=== PATIENT | male | born 1945 | race Caucasian/White ===

== ENCOUNTER → 2018-03-16 | Outpatient (CLI) | payer BC, MEDICARE ==
[2017-09-05 15:10] VITALS: BP 174/85
[~2018-03-16] MED LIST: AMLO10TA6 PO; BENA40TA3 PO; CALC1CAP7 PO; CRESTOR5 MG PO; FURO-69 PO; GLIM4TAB2 PO; HYDR-2868 PO; LABE200T4 PO; LATA2.5D3 EACHEYE; PIOG15TA42 PO; TERA2CAP3 PO
--- NOTE | 2018-03-16 15:45 | CARD ---
MR#: [id number] Date of Study: 03/16/2018 Ordering Physician: KAREEM QIU, Referring Physician: KAREEM QIU, Tech: Kasey Lucero [facility] APPROVED REPORT EXAM: Two-dimensional and M-mode echocardiogram with Doppler and color Doppler. Other Information Quality : AverageHR: 64bpm Rhythm : NSR INDICATION Congestive Heart Failure 2D DIMENSIONS RVDd3.4 (2.9-3.5cm)Left Atrium(2D)4.7 (1.6-4.0cm) IVSd1.5 (0.7-1.1cm)Aortic Root(2D)3.2 (2.0-3.7cm) LVDd5.6 (3.9-5.9cm)LVOT Diameter2.2 (1.8-2.4cm) PWd1.0 (0.7-1.1cm)LVDs4.4 (2.5-4.0cm) FS (%) 21.3 %SV66.0 ml Aortic Valve AoV Peak Vasile.152.2cm/sAoV VTI33.7cm AO Peak GR.9.3mmHgLVOT Peak Vasile.141.5cm/s AO Mean GR.5mmHgAVA (VMAX)3.38cm2 SITA (VTI)3.30cm2 Mitral Valve MV E Kvusmwph585.6cm/sMV E Peak Gr.11mmHg MV DECEL [id number] A Xrsnuhxw94.7cm/s MV E Mean Gr.4mmHgE/A Ratio2.2 MV A Eavwmlzz059da Pulmonary Valve PV Peak Eoyksdet473.8cm/s Tricuspid Valve TR P. Vhvdwfhe953ju/sRAP XMZTLIAM2wwGr TR Peak Gr.52fiMpZXRR87vnQj LEFT VENTRICLE The left ventricle is normal size. Proximal septal thickening is noted. The left ventricular systolic function is normal. The ejection fraction is estimated at 55-60%. There is normal LV segmental wall motion. Transmitral Doppler flow pattern is Grade III-reversible restrictive diastolic dysfunction. RIGHT VENTRICLE The right ventricle is normal size. There is normal right ventricular wall thickness. The right ventr icular systolic function is normal. ATRIA The left atrium is mildly dilated. The right atrium is mildly dilated. The interatrial septum is inta ct with no evidence for an atrial septal defect or patent foramen ovale as noted on 2-D or Doppler im aging. AORTIC VALVE The aortic valve is normal in structure and function. The aortic valve is trileaflet. Doppler and Col or Flow revealed trace aortic regurgitation. There is no significant aortic valvular stenosis. MITRAL VALVE Mitral annular calcification is mild. There is no evidence of mitral valve prolapse. There is mild mi tral valve stenosis. Calculated mitral valve area is 2.5 cm2 with maximum pressure gradient of 11 mmH g and mean pressure gradient of 4 mmHg. TRICUSPID VALVE The tricuspid valve is normal in structure and function. Doppler and Color Flow revealed mild tricusp id regurgitation. There is moderate pulmonary hypertension. The PA pressure was estimated at 57 mmHg. There is no tricuspid valve prolapse or vegetation. There is no tricuspid valve stenosis. PULMONIC VALVE The pulmonary valve is normal in structure and function. Doppler and Color Flow revealed no pulmonic valvular regurgitation. There is no pulmonic valvular stenosis. GREAT VESSELS The aortic root is normal in size. The ascending aorta is normal in size. PERICARDIAL EFFUSION There is no evidence of significant pericardial effusion. Critical Notification Critical Value: No <Conclusion> The left ventricular systolic function is normal. The ejection fraction is estimated at 55-60%. There is normal LV segmental wall motion. There is mild mitral valve stenosis. Mild tricuspid regurgitation. There is moderate pulmonary hypertension. The PA pressure was estimated at 57 mmHg. There is no evidence of significant pericardial effusion. Signed by : Jose Garibay, Electronically Approved : 03/16/2018 15:43:21
== END | disposition home or self-care (01) ==
LOC: ECHO 13:53
PROVIDERS: ATTEND Internal Medicine Cardiovascular Disease
DX: I08.1 Rheumatic disorders of both mitral and tricuspid valves (principal); I11.0 Hypertensive heart disease with heart failure; I50.9 Heart failure, unspecified; Z87.891 Personal history of nicotine dependence
CPT/HCPCS: 93306

== ENCOUNTER → 2018-05-02 | Outpatient (CLI) | payer MEDICARE ==
[2017-09-05 15:10] VITALS: BP 174/85
[~2018-05-02] MED LIST changes: -AMLO10TA6 PO; +AMLO10TA8 PO
--- NOTE | 2018-05-02 15:35 | KCIC ---
Indication: Claudication in the right lower extremity. TECHNIQUE: Grayscale, color Doppler and spectral waveform images of the right lower extremity arteries COMPARISON: None FINDINGS: Biphasic waveforms in the REEL CART OPERATOR with velocity of 179 cm/s. Biphasic waveform in the profunda femoris artery with velocity of 123 cm/s. Biphasic waveform in the proximal SFA with velocity of 150 cm/s. Biphasic waveform in the mid SFA with velocity 153 cm/s. Biphasic waveform in the distal SFA with velocity of 163 cm/s. Biphasic waveform in the popliteal artery with velocity of 120 cm/s. Biphasic waveforms in the proximal and distal CARDER BLANKETS with highest velocity of 113 cm/s. No flow is seen in the peroneal artery. Biphasic waveforms are seen in the dorsalis pedis artery with velocity of 111 cm/s. Biphasic waveforms are seen in the anterior tibial artery with velocity of 78 cm/s. IMPRESSION: 1. No flow in the peroneal artery likely occluded. 2. Moderate diffuse atherosclerotic disease in the right lower extremity without focal increased velocities suggest focal stenosis. Electronically signed by: Kamlesh Barrera DO (05/02/2018 3:33 PM) [facility]
== END | disposition home or self-care (01) ==
LOC: KCIC US 11:59
PROVIDERS: ATTEND Family Medicine
DX: I70.291 Other atherosclerosis of native arteries of extremities, right leg (principal)
CPT/HCPCS: 93926

== ENCOUNTER → 2018-08-13 | Outpatient (CLI) | payer MEDICARE ==
[2017-09-05 15:10] VITALS: BP 174/85
--- NOTE | 2018-08-13 17:13 | KCIC ---
Chest radiograph 08/13/2018 12:00 AM INDICATION: Pulmonary hypertension, past smoker COMPARISON: September 02, 2017 TECHNIQUE: Frontal and lateral views of the chest are provided. FINDINGS: The cardiomediastinal silhouette is within normal limits. There are no pleural effusions. There is no pulmonary vascular congestion. There is no pneumothorax. Improved aeration of the left lung base with persistent patchy interstitial changes which may represent subsegmental atelectasis versus scarring. No significant osseous abnormality is identified. Surgical clips are identified in the right axilla and the the neck base. IMPRESSION: Persistent patchy interstitial changes of the left lung base which may represent subsegmental atelectasis versus scarring. No new airspace consolidation. Electronically signed by: Elizabeth Moseley MD (08/13/2018 5:11 PM) [facility]
== END | disposition home or self-care (01) ==
LOC: KCIC CT 14:50
PROVIDERS: ATTEND Family Medicine
DX: J84.89 Other specified interstitial pulmonary diseases (principal); I27.0 Primary pulmonary hypertension; Z87.891 Personal history of nicotine dependence
CPT/HCPCS: 71046

== ENCOUNTER → 2018-11-20 | Outpatient (CLI) | payer MEDICARE ==
[2017-09-05 15:10] VITALS: BP 174/85
[~2018-11-20] MED LIST changes: -GLIM4TAB2 PO; +GLIM4TAB4 PO; +ZOLPIDEM 5 MG TABLET. PO ONE
--- NOTE | 2018-11-28 10:00 | SLEEP ---
DATE OF STUDY: SLEEP STUDY ATTENDING PHYSICIAN: Antelmo Linda MD REFERRING PHYSICIAN: Cristal Birch MD The patient is a 73-year-old who weighs 270 pounds with a BMI of 33. The patient's Meridian score was 10. The patient underwent split night study performed at [facility]. During the night study, the patient spent 391 minutes in bed and slept for 300 minutes with a sleep efficiency of 77%. Sleep latency was 68 minutes with a REM latency of 212 minutes. Sleep architecture showed normal stage 1 sleep, increased stage 2 sleep, absent slow wave and reduced REM sleep. During the initial diagnostic portion of the study, the patient slept for 81 minutes. During that time, there was 1 obstructive apnea, 2 mixed apneas, no central apneas and 63 hypopneas. The patient's apnea hypopnea index was 49 per hour with a supine index of 58 per hour. REM sleep was not seen during the diagnostic portion. EKG monitoring revealed an average heart rate of 63 beats per minute, no sustained arrhythmias observed. Nocturnal oximetry study revealed a mean oxygen saturation of 94% with the lowest of 83%. 19% of time oxygen saturation remained less than 90%. PLMS were seen at index of 15 per hour and 1 per hour caused EEG arousals. The patient met the criteria for CPAP initiation. It was started at 5 cm water and titrated up to 14 cm water. At the final pressure, the patient slept for 101 minutes. The patient had lateral REM sleep. The patient's AHI was reduced to 1 per hour and oxygen saturation remained above 88%. The patient used a large size full face mask. IMPRESSION: 1. Severe sleep apnea-hypopnea syndrome at an AHI of 49 per hour. 2. Nocturnal hypoxia secondary to LASHON, but resolved with CPAP. 3. Mild PLMS without any significant EEG arousals. This does not need to be treated. RECOMMENDATIONS: 1. CPAP at 14 cm water completely eliminated the patient's sleep apnea and should be used on a nightly basis. 2. Follow up in 4-6 weeks to assess compliance with CPAP and to document clinical improvement. 3. Weight loss is strongly advised. 4. 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 5. Cautioned regarding driving until symptoms of sleep apnea resolve with the use of CPAP. CONCHITA U. GUERRERO, MD DR: SAMARA/sekou JOB#: [id number] / [id number] CRISTAL Singer MD, TERRY MD
== END | disposition home or self-care (01) ==
LOC: SLPLAB 19:02
PROVIDERS: ATTEND Internal Medicine Pulmonary Disease
DX: G47.33 Obstructive sleep apnea (adult) (pediatric) (principal); G47.34 Idiopathic sleep related nonobstructive alveolar hypoventilation; G47.61 Periodic limb movement disorder
CPT/HCPCS: 95810

== ENCOUNTER → 2019-04-01 | Outpatient (CLI) | payer MEDICARE ==
[2017-09-05 15:10] VITALS: BP 174/85
[~2019-04-01] MED LIST changes: -GLIM4TAB4 PO; +GLIM4TAB8 PO; -ZOLPIDEM 5 MG TABLET. PO ONE
--- NOTE | 2019-04-01 13:28 | KCIC ---
TOES LEFT, FOOT LEFT 3V History: Left foot pain after fall last week. Pain at the distal metatarsals.. 3 view left toes: Fractures of the distal second, third and fourth metatarsals, mildly comminuted. Lateral angulation of the metatarsal heads, greatest at the fourth metatarsal head. No evidence of dislocation. 3 view left foot: Fractures of the distal second, third and fourth metatarsals are again seen. No other fractures are identified. No evidence of dislocation. Tarsometatarsal alignment is intact. Note is made of some focal punctate density within the distal tibia, probably a small enchondroma. IMPRESSION: 1. Distal second, third and fourth metatarsal fractures. 2. Small calcified cluster at the distal tibia, most likely a small benign enchondroma. Electronically signed by: Sanjeev Sifuentes MD (04/01/2019 1:25 PM) [facility]
== END | disposition home or self-care (01) ==
LOC: KCIC 12:48
PROVIDERS: ATTEND Family Medicine
DX: S92.322A Displaced fracture of second metatarsal bone, left foot, initial encounter for closed fracture (principal); S92.332A Displaced fracture of third metatarsal bone, left foot, initial encounter for closed fracture; S92.342A Displaced fracture of fourth metatarsal bone, left foot, initial encounter for closed fracture; W19.XXXA Unspecified fall, initial encounter; Y93.89 Activity, other specified; Y92.89 Other specified places as the place of occurrence of the external cause; Y99.8 Other external cause status
CPT/HCPCS: 73630; 73660

== ENCOUNTER → 2019-11-26 | Outpatient (CLI) | payer MEDICARE ==
[2017-09-05 15:10] VITALS: BP 174/85
[~2019-11-26] MED LIST changes: +AMLO-187 PO; -AMLO10TA8 PO
--- NOTE | 2019-11-26 11:01 | KCIC ---
Study: 1. CR L-SPINE 6V AP/LAT/OBL/FLEX/EXT 2. CR PELVIS Indication: Chronic low back pain with weakness and to the right hip/leg. No known injury. Comparison: None available. Findings: Lumbar spine: Degenerative dextroscoliosis with the apex at L3. Correspondingly there is severe disc space narrowing lateralized to the left at L3-L4 and degenerative rightward translation of L3 on L4. Advanced discogenic arthrosis also present at L4-L5 and L5-S1 particularly lateralized to the right at these levels. Mild retrolisthesis of L3 on L4. Straightening of lumbar lordosis. Development of mild grade 1 anterolisthesis of L2 on L3 with flexion. Neutral alignment across this disc space with the patient neutral and extending. No motion seen elsewhere. Advanced multilevel facet degeneration becoming most pronounced at the lower lumbar spine. No pars defect is identified on the oblique views. Osteopenia. Numerous surgical clips centered at the right lower quadrant. Vascular calcifications. Pelvis: Minimal arthrosis of both hips with maintained joint space height. Unremarkable pubic symphysis. No ankylosis with periarticular sclerosis at the SI joints. No acute fracture. Osteopenia. Surgical material projecting over the pubic bodies. Impression: Lumbar spine: 1. Advanced discogenic arthrosis from L3-L4 through L5-S1 as well as advanced multilevel facet degeneration progressing in severity towards the lower lumbar spine. Degenerative dextroscoliosis apex L3 with degenerative rightward translation of L3 on L4. 2. Development of mild grade 1 anterolisthesis of L2 on L3 only with flexion. Mild retrolisthesis of L3 on L4 but without motion on dynamic imaging. 3. Additional chronic observations as above. Pelvis: 1. No acute fracture. Minimal arthrosis at the hips. Electronically signed by: MIGUEL REYEZ MD (11/26/2019 10:58 AM) [id number]
== END ==
LOC: KCIC 09:27
PROVIDERS: ATTEND Family Medicine
DX: M47.817 Spondylosis without myelopathy or radiculopathy, lumbosacral region (principal); M43.16 Spondylolisthesis, lumbar region; M40.46 Postural lordosis, lumbar region; M85.88 Other specified disorders of bone density and structure, other site; M16.0 Bilateral primary osteoarthritis of hip; G89.29 Other chronic pain
CPT/HCPCS: 72114; 72170

== ENCOUNTER → 2020-05-20 | Outpatient (CLI) | payer MEDICARE ==
[2017-09-05 15:10] VITALS: BP 174/85
--- NOTE | 2020-05-21 09:33 | KCIC ---
MR LUMBAR SPINE [id number] Date: 05/20/2020 12:51 PM Indication: RIGHT LEG WEAKNESS. LBP, chronic but right knee giving out for about one yr. Comparison: X-ray 11/26/2019. Technique: Multi-planar multi-weighted magnetic resonance imaging of the lumbar spine was performed w ithout intravenous contrast using the standard lumbar spine protocol. FINDINGS: Right convex lumbar curvature. Right lateral translation of L3 on L4. No acute fracture. Moderate mul tilevel degenerative disc desiccation and disc height loss. Nonspecific heterogeneously T1 hypointens e marrow signal, which can be seen with smoking, anemia, or obesity. Degenerative endplate edema at L 3-4 and to a lesser extent L4-5. The conus terminates at a normal level. No abnormal signal is seen within the visualized distal spina l cord. No clumping of intrathecal nerve roots. No soft tissue abnormality in the visualized abdomen or pelvis. T12-L1: No disc bulge. No facet arthropathy. No significant spinal stenosis or neural foraminal narro wing. L1-L2: No disc bulge. No facet arthropathy. No significant spinal stenosis or neural foraminal narrow ing. L2-L3: Disc bulge. Mild facet arthropathy. No significant spinal stenosis. Multilevel neural foramina l narrowing. L3-L4: Posterior decompression. Moderate facet arthropathy. No significant spinal stenosis. Mild righ t lateral recess narrowing. Moderate right and moderate severe left neural foraminal narrowing. L4-L5: Posterior decompression. Moderate facet arthropathy. No spinal canal stenosis. Mild right late ral recess narrowing. Moderate to severe right and moderate left neural foraminal narrowing. L5-S1: Posterior decompression. Mild facet arthropathy. No spinal canal stenosis. Mild left lateral r ecess narrowing. Severe right and moderate left neural foraminal narrowing. IMPRESSION: Moderate to severe lumbar spondylosis, detailed level by level above. Electronically signed by: Nils Cassidy MD (05/21/2020 9:31 AM) [id number]
== END ==
LOC: KCIC MRI 12:43
PROVIDERS: ATTEND Family Medicine
DX: M47.817 Spondylosis without myelopathy or radiculopathy, lumbosacral region (principal); M51.36 Other intervertebral disc degeneration, lumbar region; R29.898 Other symptoms and signs involving the musculoskeletal system
CPT/HCPCS: 72148

== ENCOUNTER → 2020-07-27 | Outpatient (CLI) | payer MEDICARE ==
[2017-09-05 15:10] VITALS: BP 174/85
--- NOTE | 2020-07-27 17:39 | CARD ---
MR#: [id number] Date of Study: 07/27/2020 Ordering Physician: TRENTON DURAND, Referring Physician: TRENTON DURAND, Tech: Christy Bal [facility] APPROVED REPORT EXAM: Two-dimensional and M-mode echocardiogram with Doppler and color Doppler. Other Information Quality : Technically LimitedHR: 64bpm Rhythm : LBBB INDICATION RISK FACTORS Hypertension Obesity Hyperlipidemia 2D DIMENSIONS RVDd2.7 (2.9-3.5cm)Left Atrium(2D)4.4 (1.6-4.0cm) IVSd1.3 (0.7-1.1cm)Aortic Root(2D)3.2 (2.0-3.7cm) LVDd4.7 (3.9-5.9cm)LVOT Diameter2.4 (1.8-2.4cm) PWd1.2 (0.7-1.1cm)LVDs3.4 (2.5-4.0cm) FS (%) 27.4 %SV53.8 ml LVEF(%)53.3 (>50%) Aortic Valve AoV Peak Vasile.143.3cm/sAoV VTI23.0cm AO Peak GR.8.2mmHgLVOT Peak Vasile.132.6cm/s AO Mean GR.4mmHgAVA (VMAX)4.07cm2 Mitral Valve MV E Otcdauxk00.1cm/sMV DECEL [id number] MV A Rtsxustu432.7cm/sE/A Ratio0.5 Pulmonary Valve PV Peak Skgblonw080.4cm/s LEFT VENTRICLE The left ventricle is normal size. There is mild concentric left ventricular hypertrophy. The left ve ntricular systolic function is normal and the ejection fraction is within normal range. Estimated ej ection fraction 55-60%. There is normal LV segmental wall motion. Transmitral Doppler flow pattern is Grade I-abnormal relaxation pattern. RIGHT VENTRICLE The right ventricle is normal size. There is normal right ventricular wall thickness. The right ventr icular systolic function is normal. ATRIA The left atrium size is normal. The right atrium size is normal. The interatrial septum is intact wit h no evidence for an atrial septal defect or patent foramen ovale as noted on 2-D or Doppler imaging. AORTIC VALVE The aortic valve is normal in structure and function. Doppler and Color Flow revealed no significant aortic regurgitation. There is no significant aortic valvular stenosis. MITRAL VALVE The mitral valve is normal in structure and function. There is no evidence of mitral valve prolapse. There is no mitral valve stenosis. Doppler and Color Flow revealed trace mitral valve regurgitation. TRICUSPID VALVE The tricuspid valve is normal in structure and function. Doppler and Color Flow revealed trace tricus pid valve regurgitation. There is no tricuspid valve prolapse or vegetation. There is no tricuspid va lve stenosis. PULMONIC VALVE The pulmonary valve is normal in structure and function. Doppler and Color Flow revealed no pulmonic valvular regurgitation. GREAT VESSELS The aortic root is normal in size. The ascending aorta is normal in size. The IVC is normal in size a nd collapses >50% with inspiration. PERICARDIAL EFFUSION There is no evidence of significant pericardial effusion. Critical Notification Critical Value: No <Conclusion> The left ventricle is normal size. The left ventricular systolic function is normal and the ejection fraction is within normal range. Estimated ejection fraction 55-60%. There is mild concentric left ventricular hypertrophy. Doppler and Color Flow revealed no significant aortic regurgitation. There is no significant aortic valvular stenosis. Doppler and Color Flow revealed trace mitral valve regurgitation. Doppler and Color Flow revealed trace tricuspid valve regurgitation. Signed by : Trenton Durand MD Electronically Approved : 07/27/2020 17:38:46
== END ==
LOC: ECHO 09:51
PROVIDERS: ATTEND Internal Medicine Cardiovascular Disease
DX: I27.20 Pulmonary hypertension, unspecified (principal); I51.7 Cardiomegaly
CPT/HCPCS: 93306

== ENCOUNTER → 2020-11-24 | Outpatient (CLI) | payer MEDICARE ==
[2017-09-05 15:10] VITALS: BP 174/85
--- NOTE | 2020-11-24 12:36 | KCIC ---
EXAM: Cervical spine MRI without contrast. HISTORY: Cervical radiculopathy. TECHNIQUE: Multiplanar, multisequence magnetic resonance imaging of the cervical spine was performed without contrast. COMPARISON: None. FINDINGS: There is mild multilevel degenerative listhesis. There is degenerative endplate remodeling at multiple levels. There are multiple osseous hemangiomas, the largest of which is seen at C7. There is no acute or subacute fracture or suspicious osseous lesion. There is cerebellar volume loss. No s stephen cord lesion is seen. At C2-C3, there is a shallow posterior disc protrusion and annular tear. There is mild left facet art hropathy. There is minimal left foraminal stenosis. At C3-C4, there is a right lateral recess to foraminal disc protrusion and osteophyte complex superim posed on a disc bulge and endplate remodeling. There is moderate right and mild left facet arthropath y. There is right uncovertebral arthropathy. There is severe right and moderate left foraminal stenos is. At C4-C5, there is a left lateral recess to foraminal disc protrusion superimposed on a disc bulge an d endplate remodeling. There is mild right and moderate left facet arthropathy. There is bilateral un covertebral arthropathy. There is mild right and moderate to severe left foraminal stenosis. At C5-C6, there is a disc bulge and endplate remodeling. There is mild right and moderate left facet arthropathy. There is no stenosis. At C6-C7, there is a disc bulge and endplate remodeling. There is mild bilateral facet arthropathy. T here is minimal right foraminal stenosis. IMPRESSION: 1. Multilevel degenerative change involving the cervical spine, described in detail above. This is as sociated with minimal left foraminal stenosis at C2-C3, severe right and moderate left foraminal sten osis at C3-C4, mild right and moderate to severe left foraminal stenosis at C4-C5 and minimal right f oraminal stenosis at C6-C7. 2. No acute osseous finding or evidence of a cervical spinal cord lesion. Electronically signed by: Debbie Solis MD (11/24/2020 12:34 PM) [facility]
== END ==
LOC: KCIC MRI 10:36
PROVIDERS: ATTEND Family Medicine
DX: M47.22 Other spondylosis with radiculopathy, cervical region (principal); M50.11 Cervical disc disorder with radiculopathy, high cervical region; M48.02 Spinal stenosis, cervical region; M25.78 Osteophyte, vertebrae; D18.09 Hemangioma of other sites
CPT/HCPCS: 72141

== ENCOUNTER → 2020-12-07 | Outpatient (CLI) | payer MEDICARE ==
[2017-09-05 15:10] VITALS: BP 174/85
[~2020-12-07] MED LIST changes: -BENA40TA3 PO; +BENA40TA74 PO
--- NOTE | 2020-12-07 15:51 | PDOC1 ---
INITIAL PAIN CONSULT DATE OF SERVICE: DOS: DATE: 12/07/20 TIME: 15:40 CHIEF COMPLAINT: Chief Complaint: Low back and bilateral lower extremity pain Neck and bilateral upper extremity pain HISTORY OF PRESENT ILLNESS: 75-year-old male presents history of pain base neck bilateral upper extremity as well as low back and bilateral lower extremities. Patient has been going on for many years and has had decompressive lumbar surgery at L3-4 L4-5 and L5-S1 levels several years ago as well. Patient reports he is having significant pain in the base the neck and shoulders but he reports that his real reason for coming here today is to decide if he can maintain activity and increase activity without doing any permanent damage to his back or his neck. Patient reports is difficult with walking as his right leg feels that it is not as strong as the left and he has gotten out of condition over the years and is not able to walk as far as he would like to comfortably he is using a cane and holding his right hand mostly just for safety as he has not fallen but feels that he is unstable on his right lower extremity. Patient rates his disability rating 0-10 10 me the worst is a 9 with an responsibilities recreation and occupation 10 with sexual behavior 5 with social activity self-care and 1 with life support activities. Patient had MRI scans of both the cervical and lumbar spines which we discussed with him in detail today showing cervical degenerative changes involving the cervical spine with stenosis on the left at C2-3 severe right and moderate left foraminal stenosis C3-4 mild right and moderate to severe left foraminal stenosis C4-5 and mild right foraminal stenosis at C6-7 lumbar spine showing posterior decompression L3-4 L4-5 and L5-S1 with moderate to severe lateral recess narrowing moderate right and moderate to severe left neuroforaminal narrowing L3-4 moderate to severe right and moderate left neuroforaminal narrowing L4-5 and severe right and moderate left neuroforaminal narrowing L5-S1. PAST MEDICAL HISTORY: PMH: Arthritis, hypertension, no pulmonary hypertension, heart failure, chemotherapy from rectal cancer and bowel resection, diabetes, hearing loss PREVIOUS SURGERIES: Past Surgical Hx: Cataract extraction, thyroidectomy nephrectomy, colon resection, colostomy, lumbar laminectomy, appendectomy CURRENT MEDICATIONS: Current Meds: Active Scripts Medications Dose Route/Sig Max Daily Dose Days Date Category Lasix (Furosemide) 20 Mg Tablet 1 Tab PO DAILY 09/05/17 Rx Hydralazine Hcl 25 Mg Tablet 50 Mg PO TID 09/05/17 Rx Labetalol Hcl 200 Mg Tablet 200 Mg PO BID 09/05/17 Rx Latanoprost 2.5 Ml Drops 1 Drop EACHEYE QHS 09/03/17 Reported Crestor (Rosuvastatin Calcium) 5 Mg Tablet 1 Tab PO DAILY 07/19/17 Reported Actos (Pioglitazone Hcl) 15 Mg Tablet 1 Tab PO DAILY 07/19/17 Reported Terazosin Hcl 2 Mg Capsule 1 Cap PO DAILY 07/19/17 Reported Glimepiride 4 Mg Tablet 1 Tab PO DAILY 07/19/17 Reported ALLERGIES; Allergies: Coded Allergies: KOBY Inhibitors (Verified Allergy, Intermediate, 09/05/17) Cough amlodipine (Verified Allergy, Intermediate, Hives, 09/05/17) FAMILY HISTORY: Family Hx: No major medical problems or conditions that he is aware of. SOCIAL HISTORY: Social Hx: Patient drinks alcohol very rarely does not smoke or use any illegal illicit or recreational substances, is lives with his spouse lives locally in [place], [place], and is currently retired. REVIEW OF SYSTEMS: ROS: Positive for those items mentioned in history of present illness, all systems are reviewed, otherwise negative ,and are complete full and well-documented on patient's chart. PHYSICAL EXAM: VS: Blood pressure is 148/70 pulse 68 respirations 18 temperature 98.7 F height is 6 foot 3 inches weight is 274 pounds. PE: PHYSICAL EXAMINATION: GENERAL: The patient is awake, alert, oriented, appropriate, very pleasant in demeanor HEENT: Shows normocephalic, atraumatic. Extraocular movements are intact and symmetrical. Oral cavity: Mucous membranes moist and pink. NECK: Shows anterior throat supple without palpable lymphadenopathy noted. Swallow reflex symmetrical. CHEST: Shows normal on inspection. Breath sounds are clear bilaterally, no rales rhonchi wheezes auscultated. HEART: Shows S1, S2 clear. No murmurs auscultated. ABDOMEN: Soft, nontender, nondistended, obese. No palpable organomegaly is noted. No rebound or guarding demonstrated. Patient has colostomy bag on the left lower quadrant. BACK: Shows spine grossly in the midline. Normal-appearing cervical lordotic curvature. Cervical paraspinous muscles show symmetrical inspection, palpation some mild tenderness diffusely in the upper middle lower distribution the paraspinous muscles into the superior medial trapezius bilaterally but only diffusely without radiation. Patient shows full rotation of motion of the cervical spine both laterally as well as full extension full forward flexion without significant pain reported. There is slightly increased thoracic kyphosis, some minor flattening of the lumbar lordotic curvature, with well- healed midline surgical scar. Lumbar paraspinous muscles show symmetrical on inspection, on palpation shows some moderate tenderness diffusely throughout the upper, middle and lower distribution of the paraspinous muscles bilaterally and also into the lower thoracic paraspinous musculature, firm and tender, but without specific trigger points, without radiation of pain. The patient has good rotational motion of the lumbar spine, both laterally as well as extension and flexion without significant difficulty. No tenderness over the spinous processes, sacrum or sacroiliac regions. EXTREMITIES: Lower extremities show deep tendon reflexes 1+ in the patellar and tendo calcaneus tendons. Motor exam is 4 on a scale of 5 with right dorsiflexion, extension, quadriceps and hamstring flexion and 5/5 on the left. Peripheral pulses are 1+ posterior tibial. No peripheral edema is noted bilaterally. Lower extremities are warm and dry to touch, equal in color and appearance. Upper extremity show deep tendon reflexes 2+ in the bicep triceps tendons, motor exam strong with relay shop tester strength rated 5 out of 5 as is bicep and tricep flexion. Peripheral pulses are 2+ radial. SKIN: Shows warm and dry, good turgor. No edema. No sores, rashes or bruising throughout. IMPRESSION: Impression: 75-year-old male with long history neck and bilateral upper extremity shoulder pain and low back and bilateral lower extremity pain status post lumbar decompressive laminectomy. MRI scan cervical and lumbar spine as noted History of rectal cancer status post chemotherapy and radiation Diabetes Hypertension Arthritis Plan: We discussed patient's options including conservative management physical therapies interventional techniques. Patient elects to most conservative course and interested in pursuing physical therapy modalities and has had good luck with the chiropractor in the past has not seen him in many years. Patient would like to start with seeing his chiropractor we discussed that it is not significantly improved we may have physical therapy referral made at that time. Patient understands and agrees and we will make these arrangements if patient is not significantly improved. FERNANDA REDDING MD Dec 07, 2020 15:51
== END | disposition home or self-care (01) ==
LOC: PNCL 14:12
PROVIDERS: ATTEND Anesthesiology
DX: M79.605 Pain in left leg (principal); M79.604 Pain in right leg; M54.59 Other low back pain; M54.2 Cervicalgia; M79.602 Pain in left arm; M79.601 Pain in right arm; M19.90 Unspecified osteoarthritis, unspecified site; I10 Essential (primary) hypertension; E11.9 Type 2 diabetes mellitus without complications; E78.00 Pure hypercholesterolemia, unspecified; K21.9 Gastro-esophageal reflux disease without esophagitis; N40.0 Benign prostatic hyperplasia without lower urinary tract symptoms; Z79.899 Other long term (current) drug therapy; Z98.890 Other specified postprocedural states; Z88.8 Allergy status to other drugs, medicaments and biological substances
CPT/HCPCS: G0463